=== PATIENT | female | born 1995 | race Two or more races ===

== ENCOUNTER 2025-05-05 09:55 | Outpatient (CLI) | payer OTHER | END 2025-05-05 09:56 | disposition home or self-care (01) | LOC: PRENATAL 09:55 | PROVIDERS: ATTEND Obstetrics & Gynecology Maternal & Fetal Medicine | DX: O36.80X0 Pregnancy with inconclusive fetal viability, not applicable or unspecified (principal); Z36.82 Encounter for antenatal screening for nuchal translucency; Z14.8 Genetic carrier of other disease; O10.013 Pre-existing essential hypertension complicating pregnancy, third trimester; O36.1930 Maternal care for other isoimmunization, third trimester, not applicable or unspecified; Z3A.13 13 weeks gestation of pregnancy ==

== ENCOUNTER → 2025-06-30 14:17 | Outpatient (CLI) | payer OTHER | END | disposition home or self-care (01) | LOC: PRENATAL 14:17 | PROVIDERS: ATTEND Obstetrics & Gynecology Maternal & Fetal Medicine | DX: O44.02 Complete placenta previa NOS or without hemorrhage, second trimester (principal); O10.012 Pre-existing essential hypertension complicating pregnancy, second trimester; O36.1920 Maternal care for other isoimmunization, second trimester, not applicable or unspecified; Z3A.20 20 weeks gestation of pregnancy ==